=== PATIENT | female | born 1970 | race Caucasian/White ===

== ENCOUNTER → 2016-06-02 | Outpatient (CLI) | payer BC | END | disposition home or self-care (01) | LOC: LABWHC1 11:59 | PROVIDERS: ATTEND Internal Medicine Endocrinology, Diabetes & Metabolism | DX: E03.9 Hypothyroidism, unspecified (principal) | CPT/HCPCS: 36415; 84443 ==

== ENCOUNTER → 2016-10-20 | Outpatient (CLI) | payer BC ==
--- NOTE | 2016-10-21 08:20 | MM ---
Reason for exam: screening (asymptomatic). Last mammogram was performed 1 year and 2 months ago. History: Patient is nulliparous. Family history of breast cancer in 2 aunts. Physical Findings: A clinical breast exam by your physician is recommended on an annual basis and results should be correlated with mammographic findings. MG Screening Mammo w CAD Bilateral CC and MLO view(s) were taken. Prior study comparison: August 27, 2015, bilateral MG screening mammo w CAD. June 26, 2014, bilateral MG screening mammo w CAD. The breast tissue is almost entirely fat. There is no discrete abnormality. No significant changes when compared with prior studies. ASSESSMENT: Negative, BI-RAD 1 RECOMMENDATION: Routine screening mammogram of both breasts in 1 year.
== END | disposition home or self-care (01) ==
LOC: RADMAMWWP 08:26
PROVIDERS: ATTEND Obstetrics & Gynecology
DX: Z12.31 Encounter for screening mammogram for malignant neoplasm of breast (principal)

== ENCOUNTER → 2016-12-08 | Outpatient (CLI) | payer BC | END | disposition home or self-care (01) | LOC: LABWHC1 12:13 | PROVIDERS: ATTEND Internal Medicine Endocrinology, Diabetes & Metabolism | DX: E03.8 Other specified hypothyroidism (principal) | CPT/HCPCS: 36415; 84443 ==

== ENCOUNTER → 2017-07-02 | Outpatient (CLI) | payer BC ==
[2017-07-02 13:25] LABS: T4, Free (Free Thyroxine) 1.06 ng/dL (0.78-2.19)
== END ==
LOC: LABWHC1 12:09
PROVIDERS: ATTEND Internal Medicine Endocrinology, Diabetes & Metabolism
DX: E03.8 Other specified hypothyroidism (principal); E04.1 Nontoxic single thyroid nodule
CPT/HCPCS: 36415; 84439; 84443

== ENCOUNTER → 2017-08-17 | Outpatient (CLI) | payer BC ==
[2017-08-17 11:57] LABS: Basophils # (A) 0.1 k/uL (0-0.2); Basophils % (A) 1 %; Eosinophils # (A) 0.2 k/uL (0-0.7); Eosinophils % (A) 2 %; HCT 40.6 % (34.0-46.0); HGB 13.6 gm/dL (11.4-16.0); Lymphocytes # (A) 3.4 k/uL (1.0-4.8); Lymphocytes % (A) 32 %; MCH 29.3 pg (25.0-35.0); MCHC 33.5 g/dL (31.0-37.0); MCV 87.5 fL (80.0-100.0); Mean Platelet Volume 7.9; Monocytes # (A) 0.6 k/uL (0-1.0); Monocytes % (A) 6 %; Neutrophils # (A) 5.9 k/uL (1.3-7.7); Neutrophils % (A) 56 %; Platelet Count 263 k/uL (150-450); RBC 4.64 m/uL (3.80-5.40); WBC 10.5 k/uL (3.8-10.6)
[2017-08-17 12:13] LABS: ALT 23 U/L (9-52); AST 19 U/L (14-36); Albumin 3.6 g/dL (3.5-5.0); Alkaline Phosphatase 84 U/L (38-126); Anion Gap 10 mmol/L; Blood Urea Nitrogen 14 mg/dL (7-17); Calcium 8.9 mg/dL (8.4-10.2); Carbon Dioxide 28 mmol/L (22-30); Chloride 102 mmol/L (98-107); Cholesterol 204 mg/dL (<200); Glucose 82 mg/dL (74-99); HDL Cholesterol 38 mg/dL (40-60); LDL Cholesterol,Calculated 138 mg/dL (0-99); Potassium 4.2 mmol/L (3.5-5.1); Sodium 140 mmol/L (137-145); Total Bilirubin 0.4 mg/dL (0.2-1.3); Triglycerides 140 mg/dL (<150)
== END | disposition home or self-care (01) ==
LOC: LABWHC1 11:28
PROVIDERS: ATTEND Family Medicine
DX: R03.0 Elevated blood-pressure reading, without diagnosis of hypertension (principal)
CPT/HCPCS: 36415; 80053; 80061; 85025

== ENCOUNTER → 2017-12-28 | Outpatient (CLI) | payer BC ==
--- NOTE | 2017-12-29 14:30 | MR ---
MRI Wrist HISTORY: Left wrist pain Multiplanar multisequence imaging obtained through the left wrist. Correlation to plain film 11/02/2017 There is intermediate signal on T1, high signal on T2-weighted sequences involving the lunate. No ishmael dent collapse, small geodes may be present, axial image 7 of the T2 data set. Scapholunate, lunotriqu etral ligaments thought to be intact, however there is some increased signal along the scapholunate l igament and possible reactive marrow edema noted at the level of the lunate at the insertion suggest possible strain or partial tear of the scapholunate ligament. Correlate for history of trauma. Triang ular fibrocartilage intact. There is a small joint effusion present. Flexor and extensor tendons are intact. There is some edema signal present at the level of the volar aspect of the distal ulna. IMPRESSION: Abnormal signal within the lunate may be due to microtrabecular fracture, osteonecrosis w ithout collapse, question strain or partial tear or scapholunate ligament. Follow-up suggested.
== END | disposition home or self-care (01) ==
LOC: RADMRIMAIN 09:15
PROVIDERS: ATTEND Orthopaedic Surgery
DX: R93.7 Abnormal findings on diagnostic imaging of other parts of musculoskeletal system (principal); M25.532 Pain in left wrist

== ENCOUNTER → 2018-01-01 | Outpatient (CLI) | payer BC ==
--- NOTE | 2018-01-05 12:34 | MM ---
Reason for exam: screening (asymptomatic). Last mammogram was performed 1 year and 2 months ago. History: Patient is nulliparous. Family history of breast cancer in 2 aunts. Physical Findings: A clinical breast exam by your physician is recommended on an annual basis and results should be correlated with mammographic findings. MG Screening Mammo w CAD Bilateral CC and MLO view(s) were taken. Prior study comparison: October 20, 2016, bilateral MG screening mammo w CAD. August 27, 2015, bilateral MG screening mammo w CAD. There are scattered fibroglandular densities. No significant changes when compared with prior studies. ASSESSMENT: Benign, BI-RAD 2 RECOMMENDATION: Routine screening mammogram of both breasts in 1 year.
== END | disposition home or self-care (01) ==
LOC: RADMAMWWP 13:38
PROVIDERS: ATTEND Obstetrics & Gynecology
DX: Z12.31 Encounter for screening mammogram for malignant neoplasm of breast (principal)
CPT/HCPCS: 77067

== ENCOUNTER → 2018-01-01 | Outpatient (CLI) | payer BC ==
--- NOTE | 2018-01-01 16:22 | US ---
EXAMINATION TYPE: US thyroid st tissue head/neck DATE OF EXAM: 01/01/2018 COMPARISON: 10/08/2015 CLINICAL HISTORY: 47-year-old female E04.1 THYROID NODULE. TECHNIQUE: Multiple sonographic images of the thyroid gland are obtained. FINDINGS: GLAND SIZE: Right Lobe: 3.6 x 1.0 x 1.1 cm Overall Parenchyma: homogenous Left Lobe: 3.5 x 1.4 x 1.1 cm Overall Parenchyma: homogeneous Isthmus Thickness: 0.2 cm NODULES RIGHT: # of nodules measured on right: 1 1. 0.6 X 0.3 x 0.4 cm isoechoic solid nodule at the lower pole with well-defined margins. This nod ule is wider than tall and shows no intranodular vascularity. Previously 4 x 3 x 4 mm. LEFT: # of nodules measured on left: 0 ISTHMUS: # of nodules measured in the isthmus: 0 Bilateral neck scanned, no evidence of lymphadenopathy. IMPRESSION: Solitary nodule in the right lower pole increased by a couple millimeters now measuring 6 x 4 mm vers us 4 x 4 mm, previously in 2016.
== END | disposition home or self-care (01) ==
LOC: RADUSWWP 13:40
PROVIDERS: ATTEND Internal Medicine Endocrinology, Diabetes & Metabolism
DX: E04.1 Nontoxic single thyroid nodule (principal); E03.8 Other specified hypothyroidism
CPT/HCPCS: 36415; 76536; 84443

== ENCOUNTER → 2019-01-31 | Outpatient (CLI) | payer BC ==
--- NOTE | 2019-02-02 10:16 | MM ---
Reason for exam: screening (asymptomatic). Last mammogram was performed 1 year and 1 month ago. History: Patient is nulliparous. Family history of breast cancer in paternal aunt at age 50 and breast cancer in paternal aunt at age 60. Physical Findings: A clinical breast exam by your physician is recommended on an annual basis and results should be correlated with mammographic findings. MG Screening Mammo w CAD Bilateral CC and MLO view(s) were taken. Prior study comparison: January 01, 2018, bilateral MG screening mammo w CAD. October 20, 2016, bilateral MG screening mammo w CAD. There are scattered fibroglandular densities. No significant changes when compared with prior studies. ASSESSMENT: Negative, BI-RAD 1 RECOMMENDATION: Routine screening mammogram of both breasts in 1 year.
== END | disposition home or self-care (01) ==
LOC: RADMAMWWP 13:54
PROVIDERS: ATTEND Obstetrics & Gynecology
DX: Z12.31 Encounter for screening mammogram for malignant neoplasm of breast (principal)
CPT/HCPCS: 77067

== ENCOUNTER → 2019-01-31 | Outpatient (CLI) | payer BC ==
--- NOTE | 2019-01-31 14:44 | US ---
EXAMINATION TYPE: US thyroid st tissue head/neck DATE OF EXAM: 01/31/2019 COMPARISON: 01/01/2018 and 10/08/2015 CLINICAL HISTORY: E04.1 NON TOXIC SINGLE THYROID NODULE. GLAND SIZE: Right Lobe: 4.3 x 1.0 x 1.1 cm Overall Parenchyma: homogenous Left Lobe: 3.3 x 1.0 x 1.0 cm Overall Parenchyma: homogeneous Isthmus Thickness: cm NODULES RIGHT: # of nodules measured on right: 1 1. 0.5 X 0.3 x 0.3 cm hypoechoic solid nodule at the lower pole with well-defined margins. This no dule is wider than tall and shows no intranodular vascularity. Prior size: 0.6 x 0.3 x 0.4 cm LEFT: # of nodules measured on left: 0 ISTHMUS: # of nodules measured in the isthmus: 0 Bilateral neck scanned, no evidence of lymphadenopathy. IMPRESSION: Similar size of the subcentimeter right thyroid nodule. No interval growth. This is also similar to the prior exam of 2015. No new nodules.
== END | disposition home or self-care (01) ==
LOC: RADUSWWP 13:52
PROVIDERS: ATTEND Internal Medicine Endocrinology, Diabetes & Metabolism
DX: E04.1 Nontoxic single thyroid nodule (principal); E03.8 Other specified hypothyroidism
CPT/HCPCS: 76536; 84443

== ENCOUNTER → 2019-11-02 | Outpatient (CLI) | payer BC ==
[2019-11-02 14:33] LABS: Basophils % (A) 1 %; Eosinophils # (A) 0.2 k/uL (0-0.7); Eosinophils % (A) 4 %; HCT 43.2 % (34.0-46.0); HGB 13.6 gm/dL (11.4-16.0); Lymphocytes # (A) 2.1 k/uL (1.0-4.8); Lymphocytes % (A) 32 %; MCH 28.6 pg (25.0-35.0); MCHC 31.4 g/dL (31.0-37.0); MCV 90.9 fL (80.0-100.0); Mean Platelet Volume 9.1; Monocytes # (A) 0.4 k/uL (0-1.0); Monocytes % (A) 7 %; Neutrophils # (A) 3.6 k/uL (1.3-7.7); Neutrophils % (A) 55 %; Platelet Count 185 k/uL (150-450); RBC 4.75 m/uL (3.80-5.40); RDW 12.9 % (11.5-15.5); WBC 6.5 k/uL (3.8-10.6)
[2019-11-02 21:11] LABS: Albumin/Globulin Ratio 1.54 (1.60-3.17); Anion Gap 7.4 mmol/L (4.00-12.00); BUN/Creat Ratio 18.75 Ratio (12.00-20.00); Calcium 8.9 mg/dL (8.7-10.3); Carbon Dioxide 25.6 mmol/L (21.6-31.8); Chol/HDL Ratio 4.71; Globulin 2.6 g/dL (1.6-3.3); Non-African American GFR(CKD) 87.2 (60.0-200.0); Potassium 4.6 mmol/L (3.5-5.5); Total Bilirubin 0.5 mg/dL (0.2-1.2); Total Protein 6.6 g/dL (6.2-8.2)
[2019-11-02 21:17] LABS: T4, Free (Free Thyroxine) 1.2 ng/dL (0.80-1.80)
== END | disposition home or self-care (01) ==
LOC: LABWHC1 13:29
PROVIDERS: ATTEND Family Medicine
DX: E78.5 Hyperlipidemia, unspecified (principal); E03.9 Hypothyroidism, unspecified; Z11.1 Encounter for screening for respiratory tuberculosis; Z20.9 Contact with and (suspected) exposure to unspecified communicable disease
CPT/HCPCS: 36415; 80053; 80061; 84439; 84443; 84481; 85025; 86480; 86803

== ENCOUNTER → 2019-11-14 | Outpatient (CLI) | payer BC ==
--- NOTE | 2019-11-14 12:30 | MR ---
PRE AND POSTCONTRAST ENHANCED MRI OF THE BRAIN: CLINICAL HISTORY: H47.11 papilledema, Eye inflamation, vision changes CONTRAST: 10ml Gadavist Multiplanar and multispin-echo imaging of the brain was performed both before and after the administr ation of contrast. The ventricles, basal cisterns and sulci overlying the cerebral convexities are within normal limits. There is no evidence for midline shift or mass effect. Acute intracranial hemorrhage or extra-axial collection is not evident. Small foci of increased signal are noted on the inversion recovery data set with approximately 4-6 le sions right cerebral hemisphere and 6 date lesions left cerebral hemisphere. No lesion is greater cathy n 4 mm. Findings are nonspecific with differential diagnostic possibilities including demyelination, vasculitis, small vessel ischemic change, sequela of chronic migraine headaches and Lyme's disease to name a few. Following contrast administration, there is no evidence for pathologic enhancement or enhancing mass. The paranasal sinuses and mastoid air cells are well-aerated. IMPRESSION: Nonspecific white matter lesions.
== END | disposition home or self-care (01) ==
LOC: RADMRIMAIN 11:06
PROVIDERS: ATTEND Psychiatry & Neurology Neurology
DX: R90.82 White matter disease, unspecified (principal)
CPT/HCPCS: 70553; A9585

== ENCOUNTER → 2019-11-17 | Outpatient (CLI) | payer BC ==
--- NOTE | 2019-11-18 07:52 | US ---
EXAMINATION TYPE: US thyroid st tissue head/neck DATE OF EXAM: 11/17/2019 COMPARISON: NONE CLINICAL HISTORY: E04.1 Thyroid nodule. Thyroid nodule GLAND SIZE: Right Lobe: 3.7 x 1.3 x 1.1 cm Overall Parenchyma: homogenous Left Lobe: 3.5 x 1.2 x .8 cm Overall Parenchyma: homogeneous Isthmus Thickness: .3 cm NODULES RIGHT: # of nodules measured on right: 1 1. .6 X .4 x .6 cm cystic nodule at the mid pole with poorly defined margins; . This nodule is wid er than tall and shows no intranodular vascularity. Prior size: .5 x .3 x .3 cm LEFT: # of nodules measured on left: 0 ISTHMUS: # of nodules measured in the isthmus: 0 Bilateral neck scanned, no evidence of lymphadenopathy. IMPRESSION: Stable subcentimeter right thyroid lobe nodule.
== END | disposition home or self-care (01) ==
LOC: RADUSWWP 16:28
PROVIDERS: ATTEND Internal Medicine Endocrinology, Diabetes & Metabolism
DX: E04.1 Nontoxic single thyroid nodule (principal)
CPT/HCPCS: 76536

== ENCOUNTER → 2020-04-16 | Outpatient (CLI) | payer BC ==
--- NOTE | 2020-04-17 11:30 | MM ---
Reason for exam: screening (asymptomatic). Last mammogram was performed 1 year and 2 months ago. History: Patient is nulliparous. Family history of breast cancer in paternal aunt at age 50 and breast cancer in paternal aunt at age 60. Physical Findings: A clinical breast exam by your physician is recommended on an annual basis and results should be correlated with mammographic findings. MG Screening Mammo w CAD Bilateral CC and MLO view(s) were taken. Prior study comparison: January 31, 2019, bilateral MG screening mammo w CAD. January 01, 2018, bilateral MG screening mammo w CAD. There are scattered fibroglandular densities. There are benign appearing round calcifications in the left breast. Asymmetric breast tissue left posterior breast, stable. There is no discrete abnormality. ASSESSMENT: Benign, BI-RAD 2 RECOMMENDATION: Routine screening mammogram of both breasts in 1 year.
== END | disposition home or self-care (01) ==
LOC: RADMAMWWP 12:12
PROVIDERS: ATTEND Obstetrics & Gynecology
DX: Z12.31 Encounter for screening mammogram for malignant neoplasm of breast (principal)
CPT/HCPCS: 77067

== ENCOUNTER → 2020-05-28 | Outpatient (CLI) | payer BC | END | disposition home or self-care (01) | LOC: LABWHC1 12:33 | PROVIDERS: ATTEND Internal Medicine Endocrinology, Diabetes & Metabolism | DX: E03.8 Other specified hypothyroidism (principal) | CPT/HCPCS: 36415; 84443 ==

== ENCOUNTER → 2020-07-26 | Outpatient (CLI) | payer BC | END | disposition home or self-care (01) | LOC: LABWHC1 15:10 | PROVIDERS: ATTEND Nurse Practitioner | DX: Z11.1 Encounter for screening for respiratory tuberculosis (principal) | CPT/HCPCS: 36415; 86480 ==

== ENCOUNTER → 2020-10-10 | Outpatient (CLI) | payer BC | END | disposition home or self-care (01) | LOC: LABWHC1 14:37 | PROVIDERS: ATTEND Internal Medicine Endocrinology, Diabetes & Metabolism | DX: E03.8 Other specified hypothyroidism (principal) | CPT/HCPCS: 36415; 84443 ==

== ENCOUNTER → 2021-04-09 | Outpatient (CLI) | payer BC ==
--- NOTE | 2021-04-09 11:35 | US ---
EXAMINATION TYPE: US thyroid st tissue head/neck DATE OF EXAM: 04/09/2021 COMPARISON: Prior ultrasound November 17, 2019 CLINICAL HISTORY: E03.8 Hypothyroidism. On thyroid medicine. Follow up nodule. GLAND SIZE: Right Lobe: 3.6 x 1.2 x 1.4 cm Overall Parenchyma: homogenous Left Lobe: 3.4 x 1.0 x 1.1 cm Overall Parenchyma: homogeneous Isthmus Thickness: 0.3 cm NODULES RIGHT: # of nodules measured on right: 0 1. Previous nodule not seen on today's exam LEFT: # of nodules measured on left: 0 ISTHMUS: # of nodules measured in the isthmus: 0 Bilateral neck scanned, no evidence of lymphadenopathy. Small size fairly homogeneous thyroid without discrete nodule on today's study. IMPRESSION: As above. No new suspicious nodules identified.
== END | disposition home or self-care (01) ==
LOC: RADUSWWP 09:10
PROVIDERS: ATTEND Internal Medicine Endocrinology, Diabetes & Metabolism
DX: E03.8 Other specified hypothyroidism (principal)
CPT/HCPCS: 76536; 84443

== ENCOUNTER → 2021-07-15 | Outpatient (CLI) | payer BC ==
--- NOTE | 2021-07-17 09:39 | MM ---
Reason for exam: screening (asymptomatic). Last mammogram was performed 1 year and 3 months ago. History: Patient is nulliparous. Family history of breast cancer in paternal aunt at age 50 and breast cancer in paternal aunt at age 60. Physical Findings: A clinical breast exam by your physician is recommended on an annual basis and results should be correlated with mammographic findings. MG Screening Mammo w CAD Bilateral CC and MLO view(s) were taken. Prior study comparison: April 16, 2020, bilateral MG screening mammo w CAD. January 31, 2019, bilateral MG screening mammo w CAD. There are scattered fibroglandular densities. No significant changes when compared with prior studies. ASSESSMENT: Negative, BI-RAD 1 RECOMMENDATION: Routine screening mammogram of both breasts in 1 year.
== END | disposition home or self-care (01) ==
LOC: RADMAMWWP 15:50
PROVIDERS: ATTEND Obstetrics & Gynecology
DX: Z12.31 Encounter for screening mammogram for malignant neoplasm of breast (principal); Z80.3 Family history of malignant neoplasm of breast
CPT/HCPCS: 77067

== ENCOUNTER → 2021-12-30 | Outpatient (CLI) | payer BC ==
[2021-12-31 01:12] LABS: Basophils # (A) 0.04 X 10*3/uL (0.00-0.10); Basophils % (A) 0.7 %; Eosinophils % (A) 3.4 %; HCT 41.9 % (37.2-46.3); HGB 13.1 g/dL (12.0-15.0); Immature Grans, Automated 0.2 %; Lymphocytes # (A) 2.37 X 10*3/uL (0.90-5.00); Lymphocytes % (A) 40.4 %; MCH 28.2 pg (27.0-32.0); MCHC 31.3 g/dL (32.0-37.0); MCV 90.3 fL (80.0-97.0); Mean Platelet Volume 11.9 fL (9.5-12.2); Monocytes # (A) 0.57 X 10*3/uL (0.20-1.00); Monocytes % (A) 9.7 %; NRBC Per 100 WBC 0 /100 WBCS (0.0-0.0); Neutrophils # (A) 2.68 X 10*3/uL (1.80-7.70); Neutrophils % (A) 45.6 %; Platelet Count 226 X 10*3/uL (140-440); RBC 4.64 X 10*6/uL (4.10-5.20); RDW 13.7 % (11.5-14.5); WBC 5.87 X 10*3/uL (4.50-10.00)
[2021-12-31 03:10] LABS: ALT 15 U/L (8-44); AST 19 U/L (13-35); African American GFR (CKD) 104.2 (60.0-200.0); Albumin 3.9 g/dL (3.8-4.9); Albumin/Globulin Ratio 1.17 (1.60-3.17); Alkaline Phosphatase 83 U/L (41-126); Blood Urea Nitrogen 13.8 mg/dL (9.0-27.0); Carbon Dioxide 24.7 mmol/L (20.0-27.5); Chloride 103 mmol/L (96-109); Globulin 3.3 g/dL (1.6-3.3); Glucose 99 mg/dL (70-110); Non-African American GFR(CKD) 89.9 (60.0-200.0); Potassium 4.5 mmol/L (3.5-5.5); Sodium 138 mmol/L (135-145); Total Protein 7.1 g/dL (6.2-8.2)
== END | disposition home or self-care (01) ==
LOC: LABWHC1 15:55
PROVIDERS: ATTEND Family Medicine
DX: Z00.00 Encounter for general adult medical examination without abnormal findings (principal)
CPT/HCPCS: 36415; 80053; 80061; 84439; 84443; 85025

== ENCOUNTER → 2022-05-14 | Outpatient (CLI) | payer BC ==
--- NOTE | 2022-05-14 15:59 | XR ---
EXAMINATION TYPE: XR chest 2V DATE OF EXAM: 05/14/2022 COMPARISON: NONE TECHNIQUE: PA and lateral views submitted. HISTORY: Cough FINDINGS: The lungs are clear and there is no pneumothorax, pleural effusion, or focal pneumonia. Heart size normal and no overt failure. Osseous structures demonstrate hypertrophic and degenerative changes of the spine. Atrophic and degenerative change of the spine. Interstitium is coarsened. IMPRESSION: 1. Correlate for mild bronchitis..
== END | disposition home or self-care (01) ==
LOC: RADXRMAIN 15:36
PROVIDERS: ATTEND Family Medicine
DX: J20.9 Acute bronchitis, unspecified (principal)
CPT/HCPCS: 71046

== ENCOUNTER → 2022-07-07 | Outpatient (CLI) | payer BC ==
--- NOTE | 2022-07-07 15:44 | US ---
EXAMINATION TYPE: US thyroid st tissue head/neck DATE OF EXAM: 07/07/2022 COMPARISON: US 2020 CLINICAL HISTORY: E03.8 HYPOTHYROIDISM. Hypothyroidism. Patient is on synthroid. GLAND SIZE: Right Lobe: 3.7 x 1.2 x 1.2 cm, previously measured 3.6 x 1.2 x 1.4 cm. Overall Parenchyma: homogenous Left Lobe: 3.2 x 0.9 x 0.7 cm, previously measured 3.4 x 1.0 x 1.1 cm. Overall Parenchyma: homogeneous Isthmus Thickness: 0.3 cm, previously measured 0.3 cm. NODULES RIGHT: # of nodules measured on right: 0 LEFT: # of nodules measured on left: 0 ISTHMUS: # of nodules measured in the isthmus: 0 Bilateral neck scanned, no evidence of lymphadenopathy. IMPRESSION: No discrete thyroid nodules identified.
[2022-07-08 01:24] LABS: T4, Free (Free Thyroxine) 1.18 ng/dL (0.800-1.800)
== END | disposition home or self-care (01) ==
LOC: RADUSWWP 14:54
PROVIDERS: ATTEND Internal Medicine Endocrinology, Diabetes & Metabolism
DX: E03.8 Other specified hypothyroidism (principal)
CPT/HCPCS: 76536; 84439; 84443

== ENCOUNTER → 2023-01-21 | Outpatient (CLI) | payer BC | END | disposition home or self-care (01) | LOC: LABWHC1 13:52 | PROVIDERS: ATTEND Internal Medicine Endocrinology, Diabetes & Metabolism | DX: E03.8 Other specified hypothyroidism (principal) | CPT/HCPCS: 36415; 84443 ==

== ENCOUNTER → 2023-07-27 | Outpatient (CLI) | payer BC | END | disposition home or self-care (01) | LOC: LABWHC1 15:23 | PROVIDERS: ATTEND Internal Medicine Endocrinology, Diabetes & Metabolism | DX: E03.8 Other specified hypothyroidism (principal) | CPT/HCPCS: 36415; 84443 ==

== ENCOUNTER → 2023-11-30 | Outpatient (CLI) | payer BC ==
--- NOTE | 2023-12-01 10:36 | MM ---
Reason for Exam: Screening (asymptomatic). Last screening mammogram was performed 12 month(s) ago. Patient History: Menarche at age 15. Patient has no children. Paternal aunt had breast cancer, age 50. Paternal aunt had breast cancer, age 60. Last menstrual period: 11/24/2023 Risk Values: Kay 5 year model risk: 1.1%. NCI Lifetime model risk: 8.8%. Prior Study Comparison: 04/16/2020 Bilateral Screening Mammogram, [facility]. 07/15/2021 Bilateral Screening Mammogram, [facility]. 11/24/2022 Bilateral MG screening mammo w CAD, [facility]. Tissue Density: There are scattered areas of fibroglandular density. Findings: Analyzed By CAD. There is no suspicious group of microcalcifications or new suspicious mass in either breast. Overall Assessment: Negative, BI-RAD 1 Management: Screening Mammogram of both breasts in 1 year. . Patient should continue monthly self-breast exams. A clinical breast exam by your physician is recommended on an annual basis. This exam should not preclude additional follow-up of suspicious palpable abnormalities. Note on Kay scores and lifetime risk: 1. A Kay score greater than 3% is considered moderate risk. If this is the case, consider specialist referral to assess eligibility for a risk reducing agent. 2. If overall lifetime risk for the development of breast cancer is 20% or higher, the patient may qualify for future screening with alternating mammogram and breast MRI. Electronically signed and approved by: Oliverio Hamilton M.D. Radiologis
== END | disposition home or self-care (01) ==
LOC: RADMAMWWP 15:07
PROVIDERS: ATTEND Obstetrics & Gynecology
DX: Z12.31 Encounter for screening mammogram for malignant neoplasm of breast (principal); Z80.3 Family history of malignant neoplasm of breast; R92.323 Mammographic fibroglandular density, bilateral breasts
CPT/HCPCS: 77063; 77067

== ENCOUNTER → 2023-12-01 | Outpatient (CLI) | payer BC | LOC: CPPFTMAIN 16:34 | PROVIDERS: ATTEND Family Medicine | DX: J45.20 Mild intermittent asthma, uncomplicated (principal) | CPT/HCPCS: 94060; 94726; 94729 ==

== ENCOUNTER → 2024-01-21 | Outpatient (CLI) | payer BC ==
--- NOTE | 2024-01-21 16:30 | US ---
EXAMINATION TYPE: US thyroid st tissue head/neck DATE OF EXAM: 01/21/2024 COMPARISON: NONE CLINICAL INDICATION: Female, 53 years old with history of E041 THYROID NODULE; patient on synthroid. hypothyroidism GLAND SIZE: Right Lobe: 3.8 x 1.1 x 1.3 cm Overall Parenchyma: homogeneous Left Lobe: 3.3 x 1.1 x 1.0 cm Overall Parenchyma: homogeneous Isthmus Thickness: 0.2 cm NODULES RIGHT: # of nodules measured on right: 0 LEFT: # of nodules measured on left: 0 ISTHMUS: # of nodules measured in the isthmus: 0 Bilateral neck scanned, no evidence of lymphadenopathy. IMPRESSION: 1. No thyroid nodules. 2. No acute process. [facility], , 01/21/2024 4:28 PM
[2024-01-21 18:49] LABS: T4, Free (Free Thyroxine) 1.11 ng/dL (0.80-1.80)
== END | disposition home or self-care (01) ==
LOC: RADUSWWP 13:07
PROVIDERS: ATTEND Internal Medicine Endocrinology, Diabetes & Metabolism
DX: E04.1 Nontoxic single thyroid nodule
CPT/HCPCS: 76536; 84439; 84443

== ENCOUNTER → 2024-07-22 | Outpatient (CLI) | payer BC | END | disposition home or self-care (01) | LOC: LABWHC1 12:28 | PROVIDERS: ATTEND Internal Medicine Endocrinology, Diabetes & Metabolism | DX: E03.8 Other specified hypothyroidism (principal) | CPT/HCPCS: 36415; 84443 ==